=== PATIENT | female | born 1960 | race Two or more races ===

== ENCOUNTER 2017-03-31 10:19 | Emergency (ER) | payer SELFPAY ==
[~2017-03-31] VITALS: Ht 160 cm; Wt 95.3 kg
[~2017-03-31 10:19] MED LIST: LEVO25TA4 PO; PRED20TA PO
[2017-03-31 10:29] VITALS: BP 141/68
--- NOTE | 2017-03-31 10:52 | PHYS DOC ---
Past Medical History Past Medical History: Hypothyroid, Other Additional Past Medical Histor: CHRONIC ITCHINT Past Surgical History: Appendectomy, Cholecystectomy Alcohol Use: None Drug Use: None Adult General Chief Complaint Chief Complaint: LOWER EXT PAIN HPI HPI Patient is a 57 year old female with a history of hypothyroidism who presents with mild to moderate pain described as throbbing behind the left knee that began 2 days ago with no known injury. Patient states the pain is worse on flexion of the knee. Patient states her pain is better when she keeps her knee straight Review of Systems Review of Systems Constitutional: Denies fever or chills [] Musculoskeletal: Left knee pain Integument: Denies rash or skin lesions [] Neurologic: Denies headache, focal weakness or sensory changes [] All other systems were reviewed and found to be within normal limits, except as documented in this note. Allergies Allergies Allergies Coded Allergies Type Severity Reaction Last Updated Verified No Known Drug Allergies 12/13/14 No Physical Exam Physical Exam Constitutional: Well developed, well nourished, no acute distress, non-toxic appearance. [] Skin: Warm, dry, no erythema, no rash. [] Back: No tenderness, no CVA tenderness. [] Extremities: Left knee with no obvious deformity. Tenderness on palpation of posterior left knee. Full passive range of motion to the left knee. Negative Deedee sign and negative Nic's sign negative anterior-posterior drawer sign to the left knee. +2 left pedal pulse. Cap refill less than 2 seconds the left toes. Sensation intact to the left lower extremity. Neurologic: Alert and oriented X 3, normal motor function, normal sensory function, no focal deficits noted. [] Psychologic: Affect normal, judgement normal, mood normal. [] Current Patient Data Vital Signs Vital Signs Date Time Temp Pulse Resp B/P (MAP) Pulse Ox O2 Delivery O2 Flow Rate FiO2 03/31/17 10:29 98.8 76 20 98 Room Air 98.8 EKG EKG [] Radiology/Procedures Radiology/Procedures []PROCEDURE: KNEE LEFT 4V KNEE LEFT 4V History:Pain for 2 days Comparison: None Findings:3 views right knee are submitted. No acute osseous abnormality is identified. There is superior patellar enthesophyte. Impression: 1.No acute osseous abnormality is identified. DICTATED and SIGNED BY: MARTÍNEZ SAMUELS MD DATE: 03/31/17 1128 CC: MALU HORN JAZLYN; NO PCP ~ Course & Med Decision Making Course & Med Decision Making Pertinent Labs and Imaging studies reviewed. (See chart for details) Patient is in the ED with left knee pain with no known injury for 2 days. Left knee xrays interpreted by radiologist were negative for any acute findings. Nigel wrap applied to the left knee. Neurovascular exam is intact. Ice elevation encouraged. Discharged with diclofenac and Medrol dosepak. Follow-up with Ortho in one week. Dragon Disclaimer Dragon Disclaimer This electronic medical record was generated, in whole or in part, using a voice recognition dictation system. Departure Departure Impression: Primary Impression: Left knee pain Disposition: HOME, SELF-CARE Condition: STABLE Referrals: NO PCP (PCP) SADIE IBARRA MD follow up in one week Patient Instructions: Knee Pain, [id number] Additional Instructions: You were seen for left knee pain, your left knee x-rays were negative for any acute findings. Ice elevate the extremity. Wrap the knee with nigel wrap as tolerated. Follow-up with the provided orthopedic doctor in one week if pain continues. Take the prescribed medicines as ordered. Scripts Methylprednisolone (MEDROL) 4 Mg Tab.ds.pk 1 PKG PO UD, #1 PKG Prov: MALU HORN JAZLYN 03/31/17 Diclofenac Sodium (DICLOFENAC SODIUM) 50 Mg Tablet.dr 1 TAB PO BID, #28 TAB 0 Refills Prov: MALU HORN JAZLYN 03/31/17 Problem Qualifiers Primary Impression: Left knee pain Chronicity: acute Qualified Codes: M25.562 - Pain in left knee MALU HORN JAZLYN Mar 31, 2017 10:52
--- NOTE | 2017-03-31 11:33 | RAD ---
KNEE LEFT 4V History:Pain for 2 days Comparison: None Findings:3 views right knee are submitted. No acute osseous abnormality is identified. There is superior patellar enthesophyte. Impression: 1.No acute osseous abnormality is identified.
[2017-03-31] MEDS ORDERED: METH4TAB2 PO (11:48)
[2017-03-31] MEDS ORDERED: DICL50TA4 PO (11:48)
== END 2017-03-31 12:03 | disposition home or self-care (01) ==
LOC: ER 10:19
DX: M25.562 Pain in left knee (principal); G89.29 Other chronic pain; E03.9 Hypothyroidism, unspecified
CPT/HCPCS: 73564; 99284-25

== ENCOUNTER 2018-03-19 08:56 | Emergency (ER) | payer SELFPAY ==
[~2018-03-19] VITALS: Ht 157.5 cm; Wt 93.0 kg
[~2018-03-19 08:56] MED LIST changes: +DICL50TA4 PO; +METH4TAB2 PO
[2018-03-19] MEDS ORDERED: ORPH100T PO (09:13)
--- NOTE | 2018-03-19 09:13 | PHYS DOC ---
Past Medical History Past Medical History: Hypothyroid, Other Additional Past Medical Histor: CHRONIC ITCHINT Past Surgical History: Appendectomy, Cholecystectomy Alcohol Use: None Drug Use: None Adult General Chief Complaint Chief Complaint: Neck Pain HPI HPI Patient is a 58 year old [f__sex] who presents with [] Review of Systems Review of Systems Constitutional: Denies fever or chills [] Eyes: Denies change in visual acuity, redness, or eye pain [] HENT: Denies nasal congestion or sore throat [] Respiratory: Denies cough or shortness of breath [] Cardiovascular: No additional information not addressed in HPI [] GI: Denies abdominal pain, nausea, vomiting, bloody stools or diarrhea [] : Denies dysuria or hematuria [] Musculoskeletal: Denies back pain or joint pain [] Integument: Denies rash or skin lesions [] Neurologic: Denies headache, focal weakness or sensory changes [] Endocrine: Denies polyuria or polydipsia [] All other systems were reviewed and found to be within normal limits, except as documented in this note. Allergies Allergies Allergies Coded Allergies Type Severity Reaction Last Updated Verified No Known Drug Allergies 12/13/14 No Physical Exam Physical Exam Constitutional: Well developed, well nourished, no acute distress, non-toxic appearance. [] HENT: Normocephalic, atraumatic, bilateral external ears normal, oropharynx moist, no oral exudates, nose normal. [] Eyes: PERRLA, EOMI, conjunctiva normal, no discharge. [] Neck: Normal range of motion, no tenderness, supple, no stridor. [] Cardiovascular:Heart rate regular rhythm, no murmur [] Lungs & Thorax: Bilateral breath sounds clear to auscultation [] Abdomen: Bowel sounds normal, soft, no tenderness, no masses, no pulsatile masses. [] Skin: Warm, dry, no erythema, no rash. [] Back: No tenderness, no CVA tenderness. [] Extremities: No tenderness, no cyanosis, no clubbing, ROM intact, no edema. [] Neurologic: Alert and oriented X 3, normal motor function, normal sensory function, no focal deficits noted. [] Psychologic: Affect normal, judgement normal, mood normal. [] Current Patient Data Vital Signs Vital Signs Date Time Temp Pulse Resp B/P (MAP) Pulse Ox O2 Delivery O2 Flow Rate FiO2 11/13/18 08:57 98.6 83 16 171/81 (111) 95 Room Air 98.6 EKG EKG [] Radiology/Procedures Radiology/Procedures [] Course & Med Decision Making Course & Med Decision Making Pertinent Labs and Imaging studies reviewed. (See chart for details) [] Dragon Disclaimer Dragon Disclaimer This electronic medical record was generated, in whole or in part, using a voice recognition dictation system. Departure Departure Impression: Primary Impression: Neck pain Disposition: HOME, SELF-CARE Condition: STABLE Referrals: NO PCP (PCP) FAVIO TORRES MD Patient Instructions: Cervical Radiculopathy, [id number], Cervical Strain and Sprain with Rehab-SportsMed Additional Instructions: Ice area 20 min on then leave off for next 20 min as needed for the next few days. Use over the counter Tylenol and Ibuprofen for pain Scripts Orphenadrine Citrate (ORPHENADRINE CITRATE) 100 Mg Tablet.er 100 MG PO BID PRN for MUSCLE PAIN, #14 Prov: COCO MAHONEY DO 03/19/18 COCO MAHONEY DO Mar 19, 2018 09:13
[2018-03-19] MEDS ORDERED: ORPHENADRINE CITRATE 60 MG/2 ML VIAL. IM ONE (09:15)
[2018-03-19] MEDS ORDERED: DEXAMETHASONE 4 MG TABLET PO ONE (09:15)
[2018-03-19 09:33] VITALS: BP 131/68
== END 2018-03-19 09:37 | disposition home or self-care (01) ==
LOC: ER 08:56
DX: M54.2 Cervicalgia (principal); G89.29 Other chronic pain; E03.9 Hypothyroidism, unspecified
CPT/HCPCS: 96372; 99283; J2360; J8540

== ENCOUNTER 2018-07-29 13:45 | Inpatient (IN) | payer SELFPAY ==
[~2018-07-29] VITALS: Ht 157.5 cm; Wt 93.0 kg
[~2018-07-29 13:45] MED LIST changes: +ORPH100T PO
[2018-07-29] MEDS ORDERED: HYDROcodone/APAP 5/325MG 1 TAB TABLET PO ONE (14:15)
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
[2018-07-29] MEDS ORDERED: ONDANSETRON PF 4 MG/2 ML VIAL. IV ONE (15:00)
[2018-07-29] MEDS ORDERED: MORPHINE SULFATE 4 MG/ML VIAL. IV ONE (15:00)
[2018-07-29] MEDS ORDERED: ONDANSETRON PF 4 MG/2 ML VIAL. IV PRN ×2 (15:15→16:30)
[2018-07-29] MEDS ORDERED: MORPHINE SULFATE 4 MG/ML VIAL. IV PRN (15:15)
[2018-07-29 15:26] LABS: BASO # 0.1 x10^3/uL (0.0-0.2); BASO % 1 % (0-3); EOS # 0.1 x10^3/uL (0.0-0.7); EOS % 1 % (0-3); HEMATOCRIT 40.2 % (36.0-47.0); HEMOGLOBIN 13.4 g/dL (12.0-15.5); LYMPH # 1.7 x10^3/uL (1.0-4.8); LYMPH % 13 % (24-48); MEAN CORPUSCULAR HEMOGLOBIN 29 pg (25-35); MEAN CORPUSCULAR HGB CONC 33 g/dL (31-37); MEAN CORPUSCULAR VOLUME 87 fL (79-100); MONO # 0.5 x10^3/uL (0.0-1.1); MONO % 4 % (0-9); NEUT # 10.6 x10^3uL (1.8-7.7); NEUT % 81 % (31-73); PLATELET COUNT 419 x10^3/uL (140-400); RED CELL DISTRIBUTION WIDTH 13.4 % (11.5-14.5)
[2018-07-29 15:36] LABS: CALCIUM 9.1 mg/dL (8.5-10.1); CREATININE 0.6 mg/dL (0.6-1.0); GFR 102.7; POTASSIUM 4.4 mmol/L (3.5-5.1)
[2018-07-29 15:41] LABS: ALBUMIN 3.8 g/dL (3.4-5.0); ALBUMIN/GLOBULIN RATIO 0.9 (1.0-1.7); TOTAL BILIRUBIN 0.3 mg/dL (0.2-1.0); TOTAL PROTEIN 7.9 g/dL (6.4-8.2)
[2018-07-29 16:30] VITALS: BP 147/77
[2018-07-29] MEDS ORDERED: ACETAMINOPHEN/CODEINE 300/30MG TABLET. PO PRN (16:30)
[2018-07-29] MEDS ORDERED: ACETAMINOPHEN 500 MG TABLET PO PRN (16:30)
[2018-07-29] MEDS ORDERED: NON FORMULARY ITEM (Orphenadrine Citrate 100 MG) PO PRN (16:30)
[2018-07-29] MEDS ORDERED: ZOLPIDEM 5 MG TABLET. PO PRN (16:30)
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
[2018-07-29 18:16] LABS: PROTHROMBIN TIME PATIENT 12.3 SEC (11.7-14.0)
[2018-07-29 19:00] VITALS: BP 155/67
[2018-07-29] MEDS: IV NORMAL SALINE 1000ML BAG 1,000 ML IV SCH (19:00)
[2018-07-29] MEDS: DICLOFENAC SODIUM 25 MG TABLET.DR PO SCH (20:36)
[2018-07-29 22:43] LABS: BILIRUBIN,URINE NEGATIVE (NEG); CLARITY,URINE TURBID; COLOR,URINE YELLOW; NITRITE,URINE NEGATIVE (NEG); PROTEIN,URINE NEGATIVE (NEG-TRACE)
[2018-07-29 22:50] LABS: BACTERIA,URINE 0 /HPF (0-FEW); WBC,URINE RARE /HPF (0-4)
[2018-07-29 22:51] LABS: SQUAMOUS EPITHELIAL CELL,UR MOD /LPF
[2018-07-29 23:00] VITALS: BP 137/80
[2018-07-30 03:00] VITALS: BP 131/80
[2018-07-30] MEDS: IV NORMAL SALINE 1000ML BAG 1,000 ML IV SCH (05:13)
[2018-07-30] MEDS ORDERED: LEVOTHYROXINE 25 MCG TABLET. PO SCH (06:00)
[2018-07-30 07:00] VITALS: BP 152/52
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
[2018-07-30 08:45] LABS: BASO # 0.1 x10^3/uL (0.0-0.2); BASO % 1 % (0-3); EOS # 0.2 x10^3/uL (0.0-0.7); EOS % 3 % (0-3); HEMATOCRIT 38.2 % (36.0-47.0); HEMOGLOBIN 12.4 g/dL (12.0-15.5); LYMPH # 2.3 x10^3/uL (1.0-4.8); LYMPH % 25 % (24-48); MEAN CORPUSCULAR HEMOGLOBIN 28 pg (25-35); MEAN CORPUSCULAR HGB CONC 32 g/dL (31-37); MEAN CORPUSCULAR VOLUME 88 fL (79-100); MONO # 0.5 x10^3/uL (0.0-1.1); MONO % 6 % (0-9); NEUT # 5.9 x10^3uL (1.8-7.7); NEUT % 66 % (31-73); PLATELET COUNT 381 x10^3/uL (140-400); RED BLOOD COUNT 4.35 x10^6/uL (3.50-5.40); RED CELL DISTRIBUTION WIDTH 13.4 % (11.5-14.5); WHITE BLOOD COUNT 8.9 x10^3/uL (4.0-11.0)
[2018-07-30 09:03] LABS: CALCIUM 8.7 mg/dL (8.5-10.1); CREATININE 0.7 mg/dL (0.6-1.0); GFR 85.9; POTASSIUM 4.1 mmol/L (3.5-5.1)
[2018-07-30] MEDS: DICLOFENAC SODIUM 25 MG TABLET.DR PO SCH (09:11)
[2018-07-30 11:00] VITALS: BP 155/56
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
--- NOTE | 2018-07-30 15:08 | NUR ---
SW following. Discussed with RN, pt is [place] speaking. RN advised no SW needs and anticipates pt will discharge home today. SW gave self pay resource packet to RN to give to pt. No SW needs.
--- NOTE | 2018-07-30 15:21 | NUR ---
pt is discharged home with self care at 1511 via ambulation via ale ashley. pt is in stable condition. pt has all belongings with her. pt received discharge instructions and stated she had no further questions for me. pt pain prescription was called into her [facility] pharmacy. pt was instructed to keep splint CDI and to remain non-weight bearing until she see dr tucker in 1 week. resources for prescriptions and general care were given to pt via missy social work program coordinator.
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
== END 2018-07-30 15:11 | disposition home or self-care (01) | DRG 563 ==
LOC: ER 13:45 → 4 NORTH 15:02
PROVIDERS: ADMIT Internal Medicine; ATTEND Internal Medicine
PROC: 2W3AX1Z Immobilization of Right Upper Arm using Splint (ICD-10-PCS; principal; 2018-07-29)
DX: S42.341A Displaced spiral fracture of shaft of humerus, right arm, initial encounter for closed fracture (principal); V69.88XA Occupant (driver) (passenger) of heavy transport vehicle injured in other specified transport accidents, initial encounter; Z90.49 Acquired absence of other specified parts of digestive tract; Y93.89 Activity, other specified; Y92.89 Other specified places as the place of occurrence of the external cause; Y99.8 Other external cause status
CPT/HCPCS: 29105; 36415; 73030; 73060; 80048; 80053; 81001; 82306; 85025; 85610; 90471; 90756; 96374; 96375; J2270; J2405; J7030; 99285-25; Q2035

== ENCOUNTER 2018-08-19 08:46 | Emergency (ER) | payer SELFPAY ==
[~2018-08-19] VITALS: Ht 157.5 cm; Wt 93.0 kg
[2018-08-19] MEDS ORDERED: NAPROXEN 500 MG TABLET PO STA (08:53)
[2018-08-19 08:54] VITALS: BP 174/86
[2018-08-19] MEDS ORDERED: HYDROcodone/APAP 5/325MG 1 TAB TABLET PO ONE (09:00)
[2018-08-19] MEDS ORDERED: HYDR-3164 PO (09:02)
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
== END 2018-08-19 10:04 | disposition home or self-care (01) ==
LOC: ER 08:46
DX: S42.34 Spiral fracture of shaft of humerus (principal); E03.9 Hypothyroidism, unspecified; V89.2XXD Person injured in unspecified motor-vehicle accident, traffic, subsequent encounter
CPT/HCPCS: 99283

== ENCOUNTER 2018-10-04 11:29 | Emergency (ER) | payer SELFPAY ==
[~2018-10-04] VITALS: Ht 162.6 cm; Wt 101.2 kg
[~2018-10-04 11:29] MED LIST changes: +HYDR-3164 PO
[2018-10-04 11:56] LABS: BILIRUBIN,URINE NEGATIVE (NEG); CLARITY,URINE CLEAR; COLOR,URINE YELLOW; NITRITE,URINE NEGATIVE (NEG); PH,URINE 6.5; PROTEIN,URINE NEGATIVE (NEG-TRACE); UROBILINOGEN,URINE 0.2 mg/dL (0.2 mg/dL)
[2018-10-04 12:18] LABS: BACTERIA,URINE 0 /HPF (0-FEW); RBC,URINE 20-40 /HPF (0-2); SQUAMOUS EPITHELIAL CELL,UR MOD /LPF; WBC,URINE 0 /HPF (0-4)
--- NOTE | 2018-10-04 13:54 | RAD ---
Examination: CT abdomen pelvis without contrast HISTORY: History of hematuria COMPARISON: None available TECHNIQUE: Axial CT images of the abdomen pelvis were performed without contrast. Coronal and sagittal reformats are performed. Exposure: One or more of the following individualized dose reduction techniques were utilized for this examination: 1. Automated exposure control 2. Adjustment of the mA and/or kV according to patient size 3. Use of iterative reconstruction technique FINDINGS: There is a 9 mm nodule identified in the right lower lobe of the lung. The bibasilar lungs are clear. No evidence of free air identified in the abdomen. The visualized noncontrasted liver, spleen, adrenals grossly appears unremarkable. Density identified in the gallbladder fossa region probably surgical clips from prior cholecystectomy. The stomach is mildly distended. The visualized pancreas grossly appears unremarkable. Small bowel is nondilated. Feces and gas noted in the colon. Multiple colonic diverticulosis identified. No evidence of intrarenal collecting system calculi or hydronephrosis identified. Minimal questionable fat stranding identified about the bilateral renal pelvis. Mild degenerative changes throughout the lumbar spine. IMPRESSION: 1. No evidence of intrarenal collecting system calculi or hydronephrosis. Minimal questionable fat stranding identified about the bilateral renal pelvis could be artifactual or urinary tract infection. Correlate clinically. 2. Changes of cholecystectomy. 3. 9 mm solid nodule identified in the right lower lobe of the lung. Follow-up CT chest in 3 months. Electronically signed by: Williams Leonardo MD (10/04/2018 1:51 PM) [place] [id number]
[2018-10-04] MEDS ORDERED: CIPR500T94 PO (14:31)
--- NOTE | 2018-10-04 14:32 | PHYS DOC ---
Past Medical History Past Medical History: Hypertension, Hypothyroid, Other Additional Past Medical Histor: CHRONIC ITCHING Past Surgical History: Appendectomy, Cholecystectomy Additional Information: SMOKES TO 1 TO 2 CIGARETTES A DAY Alcohol Use: None Drug Use: None Adult General Chief Complaint Chief Complaint: BLOOD IN URINE [facility] HPI Patient is a 58 year old female with history of hypertension who presents today complaining of hematuria since yesterday. Patient is also complaining of mild mid back pain. Denies any nausea vomiting. Denies any personal history of kidney stones. Denies any nausea vomiting. Denies dysuria. Patient is Mongolian-speaking and interpretation is provided by family member. Review of Systems Review of Systems Constitutional: Denies fever or chills [] Eyes: Denies change in visual acuity, redness, or eye pain [] HENT: Denies nasal congestion or sore throat [] Respiratory: Denies cough or shortness of breath [] Cardiovascular: No additional information not addressed in HPI [] GI: Denies abdominal pain, nausea, vomiting, bloody stools or diarrhea [] : Reports hematuria. Denies dysuria Musculoskeletal: Reports mid back pain Integument: Denies rash or skin lesions [] Neurologic: Denies headache, focal weakness or sensory changes [] All other systems were reviewed and found to be within normal limits, except as documented in this note. Allergies Allergies Allergies Coded Allergies Type Severity Reaction Last Updated Verified No Known Drug Allergies 12/13/14 No Physical Exam Physical Exam Constitutional: Well developed, well nourished, no acute distress, non-toxic appearance. [] HENT: Normocephalic, atraumatic, bilateral external ears normal, oropharynx moist, no oral exudates, nose normal. [] Eyes: PERRLA, EOMI, conjunctiva normal, no discharge. [] Neck: Normal range of motion, no tenderness, supple, no stridor. [] Cardiovascular:Heart rate regular rhythm, no murmur [] Lungs & Thorax: Bilateral breath sounds clear to auscultation [] Abdomen: Bowel sounds normal, soft, no tenderness, no masses, no pulsatile masses. [] Skin: Warm, dry, no erythema, no rash. [] Back: No tenderness, no CVA tenderness. [] Extremities: No tenderness, no cyanosis, no clubbing, ROM intact, no edema. [] Neurologic: Alert and oriented X 3, normal motor function, normal sensory function, no focal deficits noted. [] Psychologic: Affect normal, judgement normal, mood normal. [] Current Patient Data Vital Signs Vital Signs Date Time Temp Pulse Resp B/P (MAP) Pulse Ox O2 Delivery O2 Flow Rate FiO2 10/04/18 11:32 98.9 101 20 180/93 (122) 97 Room Air 98.9 Lab Values Laboratory Tests Test 10/04/18 11:42 Urine Collection Type Unknown Urine Color Yellow Urine Clarity Clear Urine pH 6.5 Urine Specific [place] 1.015 Urine Protein Negative mg/dL (NEG-TRACE) Urine Glucose (UA) Negative mg/dL (NEG) Urine Ketones (Stick) Negative mg/dL (NEG) Urine Blood Large (NEG) Urine Nitrite Negative (NEG) Urine Bilirubin Negative (NEG) Urine Urobilinogen Dipstick 0.2 mg/dL (0.2 mg/dL) Urine Leukocyte Esterase Negative (NEG) Urine RBC 20-40 /HPF (0-2) Urine WBC 0 /HPF (0-4) Urine Squamous Epithelial Cells Mod /LPF Urine Bacteria 0 /HPF (0-FEW) EKG EKG [] Radiology/Procedures Radiology/Procedures []PROCEDURE: CT ABDOMEN PELVIS WO CONTRAST Examination: CT abdomen pelvis without contrast HISTORY: History of hematuria COMPARISON: None available TECHNIQUE: Axial CT images of the abdomen pelvis were performed without contrast. Coronal and sagittal reformats are performed. Exposure: One or more of the following individualized dose reduction techniques were utilized for this examination: 1. Automated exposure control 2. Adjustment of the mA and/or kV according to patient size 3. Use of iterative reconstruction technique FINDINGS: There is a 9 mm nodule identified in the right lower lobe of the lung. The bibasilar lungs are clear. No evidence of free air identified in the abdomen. The visualized noncontrasted liver, spleen, adrenals grossly appears unremarkable. Density identified in the gallbladder fossa region probably surgical clips from prior cholecystectomy. The stomach is mildly distended. The visualized pancreas grossly appears unremarkable. Small bowel is nondilated. Feces and gas noted in the colon. Multiple colonic diverticulosis identified. No evidence of intrarenal collecting system calculi or hydronephrosis identified. Minimal questionable fat stranding identified about the bilateral renal pelvis. Mild degenerative changes throughout the lumbar spine. IMPRESSION: 1. No evidence of intrarenal collecting system calculi or hydronephrosis. Minimal questionable fat stranding identified about the bilateral renal pelvis could be artifactual or urinary tract infection. Correlate clinically. 2. Changes of cholecystectomy. 3. 9 mm solid nodule identified in the right lower lobe of the lung. Follow-up CT chest in 3 months. Electronically signed by: Williams Leonardo MD (10/04/2018 1:51 PM) [facility] DICTATED and SIGNED BY: WILLIAMS LEONARDO MD DATE: 10/04/18 3968 Course & Med Decision Making Course & Med Decision Making Pertinent Labs and Imaging studies reviewed. (See chart for details) This is a 58-year-old female patient presenting to the ED today with hematuria for 2 days. Urine analysis is noted for large amount of blood. No nitrites, no leukocytes. CT of the abdomen and pelvic- No evidence of intrarenal collecting system calculi or hydronephrosis. Minimal questionable fat stranding identified about the bilateral renal pelvis could be artifactual or urinary tract infection. Correlate clinically. Clinically patient is complaining of mid back pain/flank pain. Urine was sent for culture. Considering the language barrier and no follow up. I'll put this patient on Cipro. She is noted any anticoagulants, she was instructed to follow- up with her own PCP, clinic list also provided BP was 180/93 she is on BP medicines no chest pain or shortness of breath, was informed she needs to take her medicines as soon as she gets home Dragon Disclaimer Dragon Disclaimer This electronic medical record was generated, in whole or in part, using a voice recognition dictation system. Departure Departure Impression: Primary Impression: Hematuria Disposition: 01 HOME, SELF-CARE Condition: STABLE Referrals: NO PCP (PCP) JOSE CEDILLO MD follow up in 1-2 weeks Patient Instructions: Hematuria, Adult Additional Instructions: You were evaluated in the emergency room for blood in your urine. We put you on antibiotics, take them as prescribed. Follow-up with your doctor in 1-2 weeks. Scripts Ciprofloxacin Hcl (CIPRO) 500 Mg Tablet 1 TAB PO BID, #14 TAB Prov: MALU HORN JAZLYN 10/04/18 Problem Qualifiers Primary Impression: Hematuria Hematuria type: unspecified type Qualified Codes: R31.9 - Hematuria, unspecified ASPENSHANAMALU S[employer]ED [employer]ER TESTER October 04, 2018 14:32
[2018-10-04 14:44] VITALS: BP 152/79
== END 2018-10-04 14:44 | disposition home or self-care (01) ==
LOC: ER 11:29
DX: R31.9 Hematuria, unspecified (principal); M54.6 Pain in thoracic spine; K57.32 Diverticulitis of large intestine without perforation or abscess without bleeding; I10 Essential (primary) hypertension; E03.9 Hypothyroidism, unspecified; F17.210 Nicotine dependence, cigarettes, uncomplicated; Z90.89 Acquired absence of other organs; Z90.49 Acquired absence of other specified parts of digestive tract
CPT/HCPCS: 74176; 81001; 99285-25

== ENCOUNTER 2019-05-18 13:16 | Emergency (ER) | payer OTHER ==
[~2019-05-18 13:16] MED LIST changes: +CIPR500T94 PO
[2019-05-18] MEDS ORDERED: KETOROLAC 15 MG/ML VIAL. IVP ONE (14:15)
[2019-05-18] MEDS ORDERED: IV NORMAL SALINE 1000ML BAG 1,000 ML IV ONE (14:15)
[2019-05-18] MEDS ORDERED: METOCLOPRAMIDE HCL 10 MG/2 ML VIAL. IVP ONE (14:15)
--- NOTE | 2019-05-18 14:31 | PHYS DOC ---
Past Medical History Past Medical History: Hypertension, Hypothyroid, Other Additional Past Medical Histor: CHRONIC ITCHING Past Surgical History: Appendectomy, Cholecystectomy Additional Information: Daily smoking Alcohol Use: None Drug Use: None Adult General Chief Complaint Chief Complaint: ABDOMINAL PAIN HPI HPI A 59-year-old female presents with abdominal pain that started 1 week ago. It started in her right groin and his progressed up to her right mid abdomen and ra diates around to her right flank. The pain is worsened over the last week and is episodic in nature. She rates it as 7 out of 10 and dull. She reports seeing blood in her urine. She also reports a fever and nausea with vomiting that started this morning. She has had multiple abdominal surgeries including appendectomy, cholecystectomy, hysterectomy. Review of Systems Review of Systems Constitutional: Reports fever but denies chills Eyes: Denies redness or eye pain HENT: Denies nasal congestion or sore throat Respiratory: Denies cough or shortness of breath Cardiovascular: Denies chest pain or palpitations GI: Right sided abdominal pain with right CVA tenderness. Nausea and vomiting. : Reports dysuria earlier this week. But not currently. Liza area reported. Musculoskeletal: Denies back pain or joint pain Integument: Denies rash or skin lesions Neurologic: Ports headache but denies focal weakness or sensory changes Complete systems were reviewed and found to be within normal limits, except as documented in this note. Current Medications Current Medications Current Medications Medications (Trade) Dose Ordered Sig/Ayel Start Time Stop Time Status Last Admin Dose Admin Ceftriaxone Sodium (Rocephin) 1 gm 1X ONCE 05/18/19 16:00 05/18/19 16:01 DC 05/18/19 15:59 1 GM Ketorolac Tromethamine (Toradol 15mg Vial) 15 mg 1X ONCE 05/18/19 14:15 05/18/19 14:20 DC 05/18/19 14:48 15 MG Metoclopramide HCl (Reglan Vial) 10 mg 1X ONCE 05/18/19 14:15 05/18/19 14:20 DC 05/18/19 14:48 10 MG Sodium Chloride 1,000 ml @ 1,000 mls/hr 1X ONCE 05/18/19 14:15 05/18/19 15:14 DC 05/18/19 14:15 1,000 MLS/HR Allergies Allergies Allergies Coded Allergies Type Severity Reaction Last Updated Verified No Known Drug Allergies 12/13/14 No Physical Exam Physical Exam Constitutional: Well developed, well nourished, no acute distress, non-toxic appearance HENT: Normocephalic, atraumatic, oropharynx moist Eyes: PERRL, EOMI, conjunctiva normal, no discharge Neck: Normal range of motion, no tenderness, supple Cardiovascular: Heart rate normal, regular rhythm Lungs & Thorax: Bilateral breath sounds clear to auscultation, no wheezing Abdomen: Soft, no tenderness Skin: Warm, dry, no erythema, no rash Back: No tenderness, right-sided CVA tenderness Extremities: No tenderness, ROM intact, no edema Neurologic: Alert and oriented X 3, normal motor function, normal sensory function, no focal deficits noted Psychologic: Affect normal, judgement normal, mood normal Current Patient Data Vital Signs Vital Signs Date Time Temp Pulse Resp B/P (MAP) Pulse Ox O2 Delivery O2 Flow Rate FiO2 05/18/19 14:00 98.5 103 18 163/74 (103) 95 Room Air 98.5 Lab Values Laboratory Tests Test 05/18/19 13:55 05/18/19 14:40 05/18/19 15:15 Urine Collection Type Unknown Urine Color Dk yellow Urine Clarity Cloudy Urine pH 5.5 Urine Specific [place] 1.015 Urine Protein 100 mg/dL (NEG-TRACE) Urine Glucose (UA) Negative mg/dL (NEG) Urine Ketones (Stick) Negative mg/dL (NEG) Urine Blood Large (NEG) Urine Nitrite Negative (NEG) Urine Bilirubin Negative (NEG) Urine Urobilinogen Dipstick 0.2 mg/dL (0.2 mg/dL) Urine Leukocyte Esterase Large (NEG) Urine RBC 6-10 /HPF (0-2) Urine WBC Tntc /HPF (0-4) Urine Squamous Epithelial Cells Mod /LPF Urine Bacteria Many /HPF (0-FEW) Urine Mucus Marked /LPF White Blood Count 15.1 x10^3/uL (4.0-11.0) H Red Blood Count 4.55 x10^6/uL (3.50-5.40) Hemoglobin 12.9 g/dL (12.0-15.5) Hematocrit 38.3 % (36.0-47.0) Mean Corpuscular Volume 84 fL (79-100) Mean Corpuscular Hemoglobin 28 pg (25-35) Mean Corpuscular Hemoglobin Concent 34 g/dL (31-37) Red Cell Distribution Width 15.3 % (11.5-14.5) H Platelet Count 347 x10^3/uL (140-400) Neutrophils (%) (Auto) 80 % (31-73) H Lymphocytes (%) (Auto) 13 % (24-48) L Monocytes (%) (Auto) 6 % (0-9) Eosinophils (%) (Auto) 0 % (0-3) Basophils (%) (Auto) 1 % (0-3) Neutrophils # (Auto) 12.0 x10^3/uL (1.8-7.7) H Lymphocytes # (Auto) 2.0 x10^3/uL (1.0-4.8) Monocytes # (Auto) 0.9 x10^3/uL (0.0-1.1) Eosinophils # (Auto) 0.0 x10^3/uL (0.0-0.7) Basophils # (Auto) 0.2 x10^3/uL (0.0-0.2) Sodium Level 138 mmol/L (136-145) Potassium Level 3.3 mmol/L (3.5-5.1) L Chloride Level 102 mmol/L (98-107) Carbon Dioxide Level 26 mmol/L (21-32) Anion Gap 10 (6-14) Blood Urea Nitrogen 12 mg/dL (7-20) Creatinine 0.7 mg/dL (0.6-1.0) Estimated GFR (Cockcroft-Gault) 85.6 BUN/Creatinine Ratio 17 (6-20) Glucose Level 179 mg/dL (70-99) H Calcium Level 8.7 mg/dL (8.5-10.1) Total Bilirubin 0.9 mg/dL (0.2-1.0) Aspartate Amino Transferase (AST) 31 U/L (15-37) Alanine Aminotransferase (ALT) 35 U/L (14-59) Alkaline Phosphatase 142 U/L (46-116) H Total Protein 7.4 g/dL (6.4-8.2) Albumin 3.1 g/dL (3.4-5.0) L Albumin/Globulin Ratio 0.7 (1.0-1.7) L Laboratory Tests 05/18/19 14:40 Laboratory Tests 05/18/19 15:15 EKG EKG [] Radiology/Procedures Radiology/Procedures PROCEDURE: CT ABDOMEN PELVIS WO CONTRAST CT ABDOMEN PELVIS WO CONTRAST INDICATION: Right flank pain EXAM: Noncontrast CT of the abdomen and pelvis. Coronal and sagittal reformatted images were performed. PQRS compliance statement: One or more of the following individualized dose reduction techniques were utilized for this examination: 1. Automated exposure control 2. Adjustment of the mA and/or kV according to patient size 3. Use of iterative reconstruction technique COMPARISON: 10/04/2018 FINDINGS: No free air, free fluid, or fluid collection. Lower chest: The visualized lower lungs are aerated. No pleural or pericardial effusion. ABDOMEN: Liver: Diffuse low attenuation of the hepatic parenchyma. Liver measures 21 cm craniocaudad. Gallbladder and biliary: Cholecystectomy. Normal caliber bile ducts. Spleen: Normal spleen. Pancreas: The noncontrast pancreas is homogeneous in attenuation without peripancreatic inflammatory changes. Adrenal glands: 1.9 cm right adrenal adenoma (7 Hounsfield units). Kidneys and ureters: No opaque urinary calculi. No hydronephrosis. GI tract: The stomach is decompressed and poorly evaluated. Mild colonic diverticulosis. No dilated large or small bowel. Vascular structures: Normal caliber abdominal aorta. Minimal aortoiliac atherosclerotic disease. Lymph nodes: No lymphadenopathy in the abdomen or pelvis. PELVIS: Genitourinary system: Normal bladder. Normal uterus and ovaries. SKELETAL STRUCTURES AND SOFT TISSUES: Degenerative changes spine. Tiny fat-containing umbilical hernia. IMPRESSION: 1. No opaque urinary calculi or hydronephrosis. 2. Hepatomegaly and diffuse hepatic steatosis. 3. Mild colonic diverticulosis. 4. Cholecystectomy. Electronically signed by: Zaid Comer MD (05/18/2019 2:48 PM) [facility] Course & Med Decision Making Course & Med Decision Making Patient presents with abdominal pain, not a urea and CVA tenderness on the right for the last week. CT scan shows no calculi, but she had an elevated white blood cell count and white blood cells in her urine. This is most suggestive of pyelonephritis. Dragon Disclaimer Dragon Disclaimer This electronic medical record was generated, in whole or in part, using a voice recognition dictation system. Departure Departure Impression: Primary Impression: Pyelonephritis Disposition: 01 HOME, SELF-CARE Condition: STABLE Referrals: NO PCP (PCP) Patient Instructions: Pyelonephritis, Adult, [id number] Scripts Ondansetron (ONDANSETRON ODT) 4 Mg Tab.rapdis 1 TAB PO PRN Q6-8HRS PRN for NAUSEA, #16 TAB Prov: COCO MAHONEY DO 05/18/19 Cephalexin (KEFLEX) 500 Mg Capsule 500 MG PO TID for 7 Days, #21 CAP Prov: COCO MAHONEY DO 05/18/19 Tramadol Hcl (TRAMADOL HCL) 50 Mg Tablet 50 MG PO Q6HRS PRN for PAIN, #14 TAB Prov: COCO MAHONEY DO 05/18/19 COCO MAHONEY DO May 18, 2019 14:31
--- NOTE | 2019-05-18 14:51 | RAD ---
CT ABDOMEN PELVIS WO CONTRAST INDICATION: Right flank pain EXAM: Noncontrast CT of the abdomen and pelvis. Coronal and sagittal reformatted images were performed. PQRS compliance statement: One or more of the following individualized dose reduction techniques were utilized for this examination: 1. Automated exposure control 2. Adjustment of the mA and/or kV according to patient size 3. Use of iterative reconstruction technique COMPARISON: 10/04/2018 FINDINGS: No free air, free fluid, or fluid collection. Lower chest: The visualized lower lungs are aerated. No pleural or pericardial effusion. ABDOMEN: Liver: Diffuse low attenuation of the hepatic parenchyma. Liver measures 21 cm craniocaudad. Gallbladder and biliary: Cholecystectomy. Normal caliber bile ducts. Spleen: Normal spleen. Pancreas: The noncontrast pancreas is homogeneous in attenuation without peripancreatic inflammatory changes. Adrenal glands: 1.9 cm right adrenal adenoma (7 Hounsfield units). Kidneys and ureters: No opaque urinary calculi. No hydronephrosis. GI tract: The stomach is decompressed and poorly evaluated. Mild colonic diverticulosis. No dilated large or small bowel. Vascular structures: Normal caliber abdominal aorta. Minimal aortoiliac atherosclerotic disease. Lymph nodes: No lymphadenopathy in the abdomen or pelvis. PELVIS: Genitourinary system: Normal bladder. Normal uterus and ovaries. SKELETAL STRUCTURES AND SOFT TISSUES: Degenerative changes spine. Tiny fat-containing umbilical hernia. IMPRESSION: 1. No opaque urinary calculi or hydronephrosis. 2. Hepatomegaly and diffuse hepatic steatosis. 3. Mild colonic diverticulosis. 4. Cholecystectomy. Electronically signed by: Zaid Comer MD (05/18/2019 2:48 PM) [facility]
[2019-05-18 15:02] LABS: BILIRUBIN,URINE NEGATIVE (NEG); CLARITY,URINE CLOUDY; NITRITE,URINE NEGATIVE (NEG); PH,URINE 5.5; PROTEIN,URINE 100 mg/dL (NEG-TRACE); UROBILINOGEN,URINE 0.2 mg/dL (0.2 mg/dL)
[2019-05-18 15:02] LABS: BASO # 0.2 x10^3/uL (0.0-0.2); BASO % 1 % (0-3); EOS % 0 % (0-3); HEMATOCRIT 38.3 % (36.0-47.0); HEMOGLOBIN 12.9 g/dL (12.0-15.5); LYMPH % 13 % (24-48); MEAN CORPUSCULAR HEMOGLOBIN 28 pg (25-35); MEAN CORPUSCULAR HGB CONC 34 g/dL (31-37); MEAN CORPUSCULAR VOLUME 84 fL (79-100); MONO # 0.9 x10^3/uL (0.0-1.1); MONO % 6 % (0-9); NEUT % 80 % (31-73); PLATELET COUNT 347 x10^3/uL (140-400); RED BLOOD COUNT 4.55 x10^6/uL (3.50-5.40); RED CELL DISTRIBUTION WIDTH 15.3 % (11.5-14.5); WHITE BLOOD COUNT 15.1 x10^3/uL (4.0-11.0)
[2019-05-18 15:07] LABS: COLOR,URINE DK YELLOW
[2019-05-18 15:09] LABS: BACTERIA,URINE MANY /HPF (0-FEW); SQUAMOUS EPITHELIAL CELL,UR MOD /LPF; WBC,URINE TNTC /HPF (0-4)
[2019-05-18 15:38] LABS: CALCIUM 8.7 mg/dL (8.5-10.1); CREATININE 0.7 mg/dL (0.6-1.0); GFR 85.6; POTASSIUM 3.3 mmol/L (3.5-5.1)
[2019-05-18 15:44] LABS: ALBUMIN 3.1 g/dL (3.4-5.0); ALBUMIN/GLOBULIN RATIO 0.7 (1.0-1.7); TOTAL BILIRUBIN 0.9 mg/dL (0.2-1.0); TOTAL PROTEIN 7.4 g/dL (6.4-8.2)
[2019-05-18] MEDS ORDERED: cefTRIAXone IV Push 1 GM VIAL. IVP ONE (16:00)
[2019-05-18] MEDS ORDERED: CEPH-264 PO (16:58)
[2019-05-18] MEDS ORDERED: TRAM50TA PO (16:58)
[2019-05-18] MEDS ORDERED: ONDA4TAB12 PO (16:59)
[2019-05-18 17:00] VITALS: BP 138/70
== END 2019-05-18 17:23 | disposition home or self-care (01) ==
LOC: ER 13:16
DX: N12 Tubulo-interstitial nephritis, not specified as acute or chronic (principal); R11.2 Nausea with vomiting, unspecified; R31.9 Hematuria, unspecified; R10.9 Unspecified abdominal pain; F17.200 Nicotine dependence, unspecified, uncomplicated; I10 Essential (primary) hypertension; E03.9 Hypothyroidism, unspecified; Z90.89 Acquired absence of other organs; Z90.49 Acquired absence of other specified parts of digestive tract; Z90.710 Acquired absence of both cervix and uterus
CPT/HCPCS: 36415; 74176; 80053; 81001; 85025; 87086; 96361; 96374; 96375; 99285; J0696; J1885; J2765; J7030